=== PATIENT | male | born 1940 | race Caucasian/White ===

== ENCOUNTER 2021-01-23 07:30 | Observation (INO) ==
[~2021-01-23 07:30] MED LIST: Buffered Lidocaine 1% SYRIN 1 ml INTRADERM ONE; Lactated Ringers 1000 ml BAG 1,000 ML IV SCH
[2021-01-23] MEDS ORDERED: fentaNYL 100 mcg/2 ml 50 MCG/ML VIAL ONE ×2 (12:51→14:21)
[2021-01-23] MEDS ORDERED: Lidocaine 2% PF 5 ML VIAL ONE (12:51)
[2021-01-23] MEDS ORDERED: Phenylephrine IV 10 MG/ML 1 ml VIAL ONE ×2 (12:51→15:08)
[2021-01-23] MEDS ORDERED: ceFAZolin 2 GM in NS PREMIX 2 GM/100 ML BAG IVPB ONE (12:53)
[2021-01-23] MEDS ORDERED: Buffered Lidocaine 1% SYRIN 1 ml INTRADERM ONE (12:53)
[2021-01-23] MEDS ORDERED: Famotidine IV 10 MG/ML 2 ml VIAL (20 mg) ONE (12:53)
[2021-01-23] MEDS ORDERED: Dexamethasone IV 4 MG/ML VIAL 1 ml VIAL ONE ×2 (13:02→14:21)
[2021-01-23] MEDS ORDERED: Ondansetron 4 mg VIAL 2 MG/ML 2 ml VIAL ONE (13:02)
[2021-01-23] MEDS: Famotidine IV 10 MG/ML 2 ml VIAL (20 mg) IV ONE ×2 (13:15→13:23)
[2021-01-23] MEDS ORDERED: diPHENhydraMINE IV 50 MG/ML 1 ml VIAL (BENADRYL) IV PRN ×2 (13:18→16:31)
[2021-01-23] MEDS ORDERED: fentaNYL 100 mcg/2 ml 50 MCG/ML VIAL IV PRN (13:18)
[2021-01-23] MEDS ORDERED: HYDROmorphone 1 MG/1 ML SYRINGE IV PRN (13:18)
[2021-01-23] MEDS ORDERED: Ondansetron 4 mg VIAL 2 MG/ML 2 ml VIAL IV PRN ×2 (13:18→16:31)
[2021-01-23] MEDS ORDERED: Metoclopramide 5 MG/ML VIAL (10 mg) IV PRN (13:18)
[2021-01-23] MEDS ORDERED: Naloxone 0.4 mg VIAL 0.4 mg/ml 1 ml VIAL IV PRN (13:18)
[2021-01-23] MEDS ORDERED: HYDROcodone/ACETAMIN 5/325 mg TAB PO PRN (13:18)
[2021-01-23] MEDS ORDERED: Ropivacaine 5 MG/ML 20 ML VIAL 0.5% (100 MG) ONE ×2 (14:18→15:06)
[2021-01-23] MEDS ORDERED: Midazolam 2 mg/2 ml VIAL 1 mg/ml 2 ml VIAL (2 mg) ONE (14:21)
[2021-01-23] MEDS ORDERED: Propofol 10 MG/ML 20 ML BTL ONE (16:00)
[2021-01-23] MEDS ORDERED: Morphine 2 MG/ML SYRINGE IV PRN (16:31)
[2021-01-23] MEDS ORDERED: Magnesium Hydroxide LIQ 30 ML UDC PO PRN (16:31)
[2021-01-23] MEDS ORDERED: Lactulose 30 ml UDC PO PRN (16:31)
[2021-01-23] MEDS ORDERED: Ondansetron ODT 4 mg TAB 4 MG TAB PO PRN (16:31)
[2021-01-23] MEDS ORDERED: diPHENhydraMINE 25 mg TAB PO PRN (16:31)
[2021-01-23] MEDS ORDERED: Propofol 1,000 MG/100 ML BTL ONE (16:35)
[2021-01-23] MEDS: Lactated Ringers 1000 ml BAG 1,000 ML IV SCH (20:47)
[2021-01-23] MEDS: Magnesium Hydroxide LIQ 30 ML UDC PO SCH (20:54)
[2021-01-23] MEDS: ceFAZolin 1 GM ADVAN 1 GM in NS 0.9% 50 ML 50 ML IVPB SCH (23:32)
[2021-01-24 06:27] LABS: Hematocrit 37 % (42-52); Hemoglobin 12.3 g/dL (14.0-18.0); Mean Platelet Volume 8.8 fL (7.4-10.4); Platelet Count 259 10^3/uL (150-450)
[2021-01-24 06:57] LABS: Calcium 8.6 mg/dL (8.6-10.3); EGFR African American 91.2 (>60); EGFR Non-African American 75.4 (>60); Potassium 4.2 mmol/L (3.5-5.0)
[2021-01-24] MEDS: Lactated Ringers 1000 ml BAG 1,000 ML IV SCH (07:19)
[2021-01-24] MEDS: ceFAZolin 1 GM ADVAN 1 GM in NS 0.9% 50 ML 50 ML IVPB SCH ×2 (08:39→15:47)
[2021-01-24] MEDS: Magnesium Hydroxide LIQ 30 ML UDC PO SCH (08:40)
[2021-01-24] MEDS ORDERED: Vitamin THERAPEUTIC TAB PO SCH (09:00)
[2021-01-24 16:12] VITALS: BP 138/72
== END 2021-01-24 16:40 | disposition home or self-care (01) ==
LOC: AA 12:21 → INTOOBSV 12:21 → SSU 18:48
PROVIDERS: ADMIT Orthopaedic Surgery Adult Reconstructive Orthopaedic Surgery; ATTEND Orthopaedic Surgery Adult Reconstructive Orthopaedic Surgery

== ENCOUNTER 2021-07-23 18:23 | Inpatient (IN) ==
[2021-07-23] MEDS ORDERED: NS 0.9% 1000 ml BAG 1,000 ML IV ONE (18:27)
[2021-07-23 18:38] LABS: ABS Lymphocytes 0.6 10^3/ul (1.0-4.8); ABS Monocytes 0.6 10^3/ul (0-0.8); ABS Neutrophils 10.5 10^3/ul (1.5-7.7); Hematocrit 40 % (42-52); Hemoglobin 13.3 g/dL (14.0-18.0); Lymphocyte % 5.4 %; Mean Corpuscular HGB Conc 34 g/dL (31-36); Mean Corpuscular Hemoglobin 31 pg (27-31); Mean Corpuscular Volume 92 fL (80-94); Mean Platelet Volume 8.9 fL (7.4-10.4); Platelet Count 290 10^3/uL (150-450); Red Cell Distribution Width 15 % (10-15); White Blood Count 11.8 10^3/uL (3.5-10.8)
[2021-07-23] MEDS ORDERED: Prothrombin Complex Conc. DOSE = Units Factor IX (nine) IV SLOW PU ONE (18:42)
[2021-07-23 19:08] LABS: Activated Partial Thrombo Time 26.7 seconds (26.0-38.0); INR 1.08 (0.86-1.15)
[2021-07-23] MEDS ORDERED: Thrombin 5,000 UNITS 1 APPLIC KIT - topical use - TOPICAL ONE ×2 (19:20→21:47)
[2021-07-23] MEDS ORDERED: Lidocaine 1% w EPI 1:100,000 MDV 20 ML VIAL ONE (19:20)
[2021-07-23] MEDS ORDERED: Mannitol 25% (12.5 GM) 50 ML 12.5 GM/50 ML VIAL ONE (19:21)
[2021-07-23] MEDS ORDERED: Rocuronium 50 mg VIAL 10 mg/ml 5 ml VIAL (50 mg) ONE ×2 (19:25→21:57)
[2021-07-23] MEDS ORDERED: Lidocaine 2% PF 5 ML VIAL ONE ×2 (19:25→19:33)
[2021-07-23] MEDS ORDERED: fentaNYL 250 mcg/5 ml 50 MCG/ML 5 ml VIAL (250 MCG) ONE (19:25)
[2021-07-23] MEDS ORDERED: Propofol 10 MG/ML 20 ML BTL ONE ×4 (19:25→22:24)
[2021-07-23] MEDS ORDERED: Etomidate 20 mg/10 ml 2 MG/ML 10 ml VIAL ONE ×2 (19:25→19:29)
[2021-07-23 19:52] LABS: Albumin 4.6 g/dL (3.2-5.2); Calcium 9.3 mg/dL (8.6-10.3); Globulin 2.3 g/dL (2-4); HDL Cholesterol 57.3 mg/dL; Total Protein 6.9 g/dL (6.4-8.9)
[2021-07-23] MEDS ORDERED: ceFAZolin 2 GM in NS PREMIX 2 GM/100 ML BAG IVPB ONE (19:54)
[2021-07-23 20:08] LABS: High Sensitivity Troponin 1 Hr 244 pg/mL (<20)
[2021-07-23] MEDS ORDERED: Ondansetron 4 mg VIAL 2 MG/ML 2 ml VIAL IV PRN (20:18)
[2021-07-23 20:39] LABS: Potassium 3.5 mmol/L (3.5-5.0)
[2021-07-23] MEDS ORDERED: Gelfoam Sponge SIZE 100 SPONGE ONE (20:46)
[2021-07-23] MEDS ORDERED: levETIRAcetam IV 500 MG/5 ML VIAL ONE (21:06)
[2021-07-23 21:30] LABS: PCO2 Arterial 30 mmHg (35-45); PO2 Arterial 211 mmHg (80-100)
[2021-07-23] MEDS ORDERED: Phenylephrine IV 10 MG/ML 1 ml VIAL ONE (21:48)
[2021-07-23] MEDS ORDERED: Dexamethasone IV 4 MG/ML VIAL 1 ml VIAL ONE (22:16)
[2021-07-23] MEDS ORDERED: Ondansetron 4 mg VIAL 2 MG/ML 2 ml VIAL ONE (22:27)
[2021-07-23] MEDS ORDERED: hydrALAZINE 20 mg/ml 1 ML Vial IV ONE ×2 (22:37→23:03)
[2021-07-23] MEDS ORDERED: Lactated Ringers 1000 ml BAG 1,000 ML IV SCH (23:00)
[2021-07-23] MEDS: niCARdipine 0.1MG/ML IVPREMIX 20 MG/200 ML BAG IV SCH (23:40)
[2021-07-23] MEDS ORDERED: niCARdipine 0.1MG/ML IVPREMIX 20 MG/200 ML BAG IV SCH (23:45)
[2021-07-24] MEDS: Acetaminophen IV 1 GM/100ML 100 ML IV PRN ×3 (01:35→22:02)
[2021-07-24 04:57] LABS: ABS Lymphocytes 0.4 10^3/ul (1.0-4.8); ABS Monocytes 0.6 10^3/ul (0-0.8); ABS Neutrophils 14.2 10^3/ul (1.5-7.7); Hematocrit 35 % (42-52); Hemoglobin 11.8 g/dL (14.0-18.0); Lymphocyte % 2.5 %; Mean Corpuscular HGB Conc 33 g/dL (31-36); Mean Corpuscular Hemoglobin 32 pg (27-31); Mean Corpuscular Volume 95 fL (80-94); Mean Platelet Volume 9.5 fL (7.4-10.4); Platelet Count 252 10^3/uL (150-450); Red Blood Count 3.74 10^6 /uL (4.18-5.48); Red Cell Distribution Width 15 % (10-15); White Blood Count 15.2 10^3/uL (3.5-10.8)
[2021-07-24 05:01] LABS: INR 1.14 (0.86-1.15)
[2021-07-24 05:22] LABS: Albumin 3.9 g/dL (3.2-5.2); Albumin/Globulin Ratio 1.7 (1-3); Calcium 8.2 mg/dL (8.6-10.3); Globulin 2.3 g/dL (2-4); Magnesium 1.8 mg/dL (1.9-2.7); Phosphorus 3.3 mg/dL (2.5-5.0); Potassium 3.5 mmol/L (3.5-5.0); Total Protein 6.2 g/dL (6.4-8.9); eGFR CKD-EPI 75.2 (>60)
[2021-07-24] MEDS ORDERED: Magnesium Sulfate 2 gm BAG 2 GM/50 ML BAG IVPB ONE (05:27)
[2021-07-24] MEDS: niCARdipine 0.1MG/ML IVPREMIX 20 MG/200 ML BAG IV SCH ×4 (07:37→20:28)
[2021-07-24] MEDS ORDERED: Potassium Chlor 20 meq TAB.ER PO ONE (08:22)
[2021-07-24 08:50] LABS: PCO2 Arterial 28 mmHg (35-45); PO2 Arterial 102 mmHg (80-100)
[2021-07-24 09:14] LABS: Calcium 8.1 mg/dL (8.6-10.3); Potassium 3.6 mmol/L (3.5-5.0); eGFR CKD-EPI 79.9 (>60)
[2021-07-24] MEDS: levETIRAcetam 500 MG IVPREMIX 500 MG/100 ML BAG IV SCH ×2 (10:33→18:11)
[2021-07-24] MEDS ORDERED: Gadobenate (CONTRAST) 529 MG/ML 10 ML SDV IV ONE (13:30)
[2021-07-24] MEDS: KCL 20 MEQ/100 ML IVPREMIX 20 MEQ/100 ML BAG IV SCH ×2 (14:21→17:30)
[2021-07-25 04:35] LABS: Hematocrit 31 % (42-52); Hemoglobin 10.4 g/dL (14.0-18.0); Mean Corpuscular HGB Conc 33 g/dL (31-36); Mean Corpuscular Hemoglobin 31 pg (27-31); Mean Corpuscular Volume 94 fL (80-94); Mean Platelet Volume 9.6 fL (7.4-10.4); Platelet Count 241 10^3/uL (150-450); Red Blood Count 3.32 10^6 /uL (4.18-5.48); Red Cell Distribution Width 16 % (10-15); White Blood Count 13.5 10^3/uL (3.5-10.8)
[2021-07-25 04:56] LABS: Calcium 8.1 mg/dL (8.6-10.3); Magnesium 2.4 mg/dL (1.9-2.7); Potassium 3.9 mmol/L (3.5-5.0); eGFR CKD-EPI 89.5 (>60)
[2021-07-25] MEDS: levETIRAcetam 500 MG IVPREMIX 500 MG/100 ML BAG IV SCH ×2 (05:24→20:06)
[2021-07-25] MEDS: Acetaminophen IV 1 GM/100ML 100 ML IV PRN ×2 (06:05→21:08)
[2021-07-25 06:50] LABS: Urine Appearance Cloudy; Urine Bilirubin Negative (Negative); Urine Blood 3+ (Negative); Urine Color Yellow; Urine Glucose Negative (Negative); Urine Ketones 1+ (Negative); Urine Nitrite Negative (Negative); Urine Protein 1+(30 mg/dL) (Negative); Urine Specific Gravity 1.023 (1.002-1.030); Urine Urobilinogen Negative (Negative)
[2021-07-25 06:57] LABS: Urine Osmo 790 mOsm/kg (150-1150)
[2021-07-25 07:13] LABS: Urine Bacteria Absent (Absent); Urine Red Blood Cell 3+(>10/hpf) (Absent); Urine White Blood Cell 2+(11-20/hpf) (Absent); Urine Yeast Present (Absent)
[2021-07-25] MEDS ORDERED: Potassium Chloride LIQUID 20 MEQ/15 ML LIQUID PO ONE (07:40)
[2021-07-25] MEDS: hydrALAZINE 20 mg/ml 1 ML Vial IV IV SLOW PU PRN ×2 (17:04→21:12)
[2021-07-25] MEDS ORDERED: Furosemide 20 mg/2 ml IV VIAL IV SLOW PU ONE (21:05)
[2021-07-26] MEDS ORDERED: Diltiazem IV push/loading dose 5 MG/ML 5 ML vial (25 mg) IV SLOW PU ONE (03:36)
[2021-07-26 05:03] LABS: Hematocrit 31 % (42-52); Hemoglobin 10.3 g/dL (14.0-18.0); Mean Corpuscular HGB Conc 33 g/dL (31-36); Mean Corpuscular Hemoglobin 31 pg (27-31); Mean Corpuscular Volume 94 fL (80-94); Mean Platelet Volume 9.3 fL (7.4-10.4); Platelet Count 234 10^3/uL (150-450); Red Blood Count 3.33 10^6 /uL (4.18-5.48); Red Cell Distribution Width 15 % (10-15); White Blood Count 11.4 10^3/uL (3.5-10.8)
[2021-07-26] MEDS: levETIRAcetam 500 MG IVPREMIX 500 MG/100 ML BAG IV SCH ×2 (05:17→18:56)
[2021-07-26] MEDS ORDERED: niCARdipine 0.1MG/ML IVPREMIX 20 MG/200 ML BAG IV ONE (05:17)
[2021-07-26 05:18] LABS: Calcium 8.3 mg/dL (8.6-10.3); Magnesium 2.2 mg/dL (1.9-2.7); Potassium 3.7 mmol/L (3.5-5.0); eGFR CKD-EPI 90.2 (>60)
[2021-07-26] MEDS: niCARdipine 0.1MG/ML IVPREMIX 20 MG/200 ML BAG IV SCH ×2 (05:21→07:51)
[2021-07-26] MEDS ORDERED: Potassium Chlor 20 meq TAB.ER PO ONE (07:23)
[2021-07-26] MEDS ORDERED: Labetalol IV 5 MG/ML 20 ml VIAL IV PUSH PRN (08:26)
[2021-07-27] MEDS: levETIRAcetam 500 MG IVPREMIX 500 MG/100 ML BAG IV SCH (06:07)
[2021-07-27 06:28] LABS: Hematocrit 31 % (42-52); Hemoglobin 10.6 g/dL (14.0-18.0); Mean Corpuscular HGB Conc 34 g/dL (31-36); Mean Corpuscular Hemoglobin 32 pg (27-31); Mean Corpuscular Volume 95 fL (80-94); Red Blood Count 3.32 10^6 /uL (4.18-5.48); Red Cell Distribution Width 15 % (10-15); White Blood Count 9.7 10^3/uL (3.5-10.8)
[2021-07-27 06:48] LABS: Calcium 8.3 mg/dL (8.6-10.3); Potassium 3.9 mmol/L (3.5-5.0); eGFR CKD-EPI 94.4 (>60)
[2021-07-27 07:53] LABS: Mean Platelet Volume 10.1 fL (7.4-10.4); Platelet Count 245 10^3/uL (150-450)
[2021-07-28 05:24] LABS: ABS Eosinophils 0.1 10^3/ul (0-0.6); ABS Lymphocytes 1.3 10^3/ul (1.0-4.8); ABS Monocytes 0.6 10^3/ul (0-0.8); ABS Neutrophils 5.4 10^3/ul (1.5-7.7); Eosinophil % 1.8 %; Hematocrit 31 % (42-52); Hemoglobin 10.5 g/dL (14.0-18.0); Mean Corpuscular HGB Conc 33 g/dL (31-36); Mean Corpuscular Hemoglobin 31 pg (27-31); Mean Corpuscular Volume 94 fL (80-94); Mean Platelet Volume 9.7 fL (7.4-10.4); Platelet Count 251 10^3/uL (150-450); Red Blood Count 3.34 10^6 /uL (4.18-5.48); Red Cell Distribution Width 15 % (10-15); White Blood Count 7.5 10^3/uL (3.5-10.8)
[2021-07-28 06:05] LABS: Calcium 7.9 mg/dL (8.6-10.3); Potassium 3.7 mmol/L (3.5-5.0)
[2021-07-28 06:26] LABS: eGFR CKD-EPI 96.2 (>60)
[2021-07-28] MEDS: Enoxaparin 40 MG/0.4 ML SYR SUBCUT SCH (11:30)
[2021-07-29] MEDS: Enoxaparin 40 MG/0.4 ML SYR SUBCUT SCH (11:17)
[2021-07-29 12:17] LABS: Urine Appearance Clear; Urine Bilirubin Negative (Negative); Urine Blood 1+ (Negative); Urine Color Yellow; Urine Glucose Negative (Negative); Urine Ketones Negative (Negative); Urine Nitrite Negative (Negative); Urine Protein Negative (Negative); Urine Specific Gravity 1.021 (1.002-1.030); Urine Urobilinogen Positive (Negative)
[2021-07-29 12:20] LABS: Urine Bacteria Absent (Absent); Urine Red Blood Cell 2+(6-10/hpf) (Absent); Urine White Blood Cell Trace(0-5/hpf) (Absent)
[2021-07-29 15:17] VITALS: BP 141/66
== END 2021-07-29 15:19 | DRG 23 ==
LOC: ED 18:23 → ICU 20:17 → SUATTDRO 20:18 → ICU 20:18 → SSU 07-25 17:21 → ICU 07-26 04:42 → MEDTELE 07-26 18:02
PROVIDERS: ADMIT Internal Medicine; ATTEND Student in an Organized Health Care Education/Training Program

== ENCOUNTER 2021-07-29 13:23 | Inpatient (IN) ==
[2021-07-29] MEDS ORDERED: Ondansetron ODT 4 mg TAB 4 MG TAB PO PRN (15:49)
[2021-07-29] MEDS: Senna TAB 8.6 mg TAB PO PRN (21:11)
[2021-07-30 05:53] LABS: ABS Basophils 0.1 10^3/ul (0-0.2); ABS Eosinophils 0.1 10^3/ul (0-0.6); ABS Lymphocytes 1.7 10^3/ul (1.0-4.8); ABS Monocytes 0.8 10^3/ul (0-0.8); Eosinophil % 1.2 %; Hematocrit 32 % (42-52); Hemoglobin 10.8 g/dL (14.0-18.0); Lymphocyte % 19.6 %; Mean Corpuscular HGB Conc 34 g/dL (31-36); Mean Corpuscular Hemoglobin 32 pg (27-31); Mean Corpuscular Volume 93 fL (80-94); Mean Platelet Volume 9.8 fL (7.4-10.4); Platelet Count 266 10^3/uL (150-450); Red Blood Count 3.43 10^6 /uL (4.18-5.48); Red Cell Distribution Width 15 % (10-15); White Blood Count 8.6 10^3/uL (3.5-10.8)
[2021-07-30 06:52] LABS: Albumin 3.1 g/dL (3.2-5.2); Calcium 8.2 mg/dL (8.6-10.3); Potassium 3.4 mmol/L (3.5-5.0); Total Bilirubin 0.7 mg/dL (0.2-1.0)
[2021-07-30 06:58] LABS: Albumin/Globulin Ratio 1.2 (1-3); Globulin 2.6 g/dL (2-4); Total Protein 5.7 g/dL (6.4-8.9)
[2021-07-30] MEDS: Magnesium Hydroxide LIQ 30 ML UDC PO PRN (10:16)
[2021-07-30] MEDS ORDERED: Pneumococcal Vac 23-Polyvalent IM ONE (11:00)
[2021-07-30] MEDS: Enoxaparin 40 MG/0.4 ML SYR SUBCUT SCH (13:19)
[2021-07-30] MEDS: Senna TAB 8.6 mg TAB PO PRN (20:46)
[2021-07-30] MEDS ORDERED: Potassium Chlor 20 meq TAB.ER PO SCH (21:00)
[2021-07-30] MEDS: Potassium Chloride LIQUID 20 MEQ/15 ML LIQUID PO SCH (21:22)
[2021-07-31] MEDS: Potassium Chloride LIQUID 20 MEQ/15 ML LIQUID PO SCH ×2 (09:42→19:30)
[2021-07-31] MEDS: Enoxaparin 40 MG/0.4 ML SYR SUBCUT SCH (13:51)
[2021-07-31 16:43] LABS: Urine Appearance Cloudy; Urine Bilirubin Negative (Negative); Urine Blood 3+ (Negative); Urine Color Amber; Urine Glucose Negative (Negative); Urine Ketones Negative (Negative); Urine Nitrite Negative (Negative); Urine Protein 2+(100 mg/dL) (Negative); Urine Specific Gravity 1.025 (1.002-1.030); Urine Urobilinogen Positive (Negative)
[2021-07-31 16:50] LABS: Urine Bacteria Absent (Absent); Urine Red Blood Cell 3+(>10/hpf) (Absent); Urine Squamous Epithelial Cell Present (Absent); Urine White Blood Cell 2+(11-20/hpf) (Absent)
[2021-08-01] MEDS: Potassium Chloride LIQUID 20 MEQ/15 ML LIQUID PO SCH ×2 (08:13→21:37)
[2021-08-01] MEDS: Enoxaparin 40 MG/0.4 ML SYR SUBCUT SCH (13:11)
[2021-08-02 06:09] LABS: Calcium 8.2 mg/dL (8.6-10.3); eGFR CKD-EPI 93.6 (>60)
[2021-08-02] MEDS: Enoxaparin 40 MG/0.4 ML SYR SUBCUT SCH (12:34)
[2021-08-03] MEDS: Magnesium Hydroxide LIQ 30 ML UDC PO PRN (10:00)
[2021-08-03] MEDS: Enoxaparin 40 MG/0.4 ML SYR SUBCUT SCH (13:59)
[2021-08-04] MEDS: Enoxaparin 40 MG/0.4 ML SYR SUBCUT SCH (12:07)
[2021-08-05] MEDS: Polyethylene Glycol 3350 17 GM PACKET PO PRN (07:57)
[2021-08-05 11:08] LABS: Urine Appearance Turbid; Urine Bilirubin Negative (Negative); Urine Blood 3+ (Negative); Urine Color Yellow; Urine Glucose Negative (Negative); Urine Ketones Negative (Negative); Urine Nitrite Positive (Negative); Urine Protein 1+(30 mg/dL) (Negative); Urine Specific Gravity 1.012 (1.002-1.030); Urine Urobilinogen Negative (Negative)
[2021-08-05 11:17] LABS: Urine Amorphous Crystals Present (Absent); Urine Bacteria 1+ (Absent); Urine Red Blood Cell 1+(3-5/hpf) (Absent); Urine White Blood Cell 3+(>20/hpf) (Absent)
[2021-08-05] MEDS: Magnesium Hydroxide LIQ 30 ML UDC PO PRN (11:51)
[2021-08-05] MEDS: Enoxaparin 40 MG/0.4 ML SYR SUBCUT SCH (11:51)
[2021-08-05] MEDS: Lidocaine PATCH 5% PATCH TRANSDERM PRN (20:02)
[2021-08-05] MEDS: Senna TAB 8.6 mg TAB PO PRN (20:12)
[2021-08-06 07:21] LABS: ABS Basophils 0.1 10^3/ul (0-0.2); ABS Lymphocytes 0.9 10^3/ul (1.0-4.8); ABS Monocytes 1.1 10^3/ul (0-0.8); ABS Neutrophils 16.1 10^3/ul (1.5-7.7); Hematocrit 30 % (42-52); Hemoglobin 10.1 g/dL (14.0-18.0); Lymphocyte % 5.1 %; Mean Corpuscular HGB Conc 34 g/dL (31-36); Mean Corpuscular Hemoglobin 31 pg (27-31); Mean Corpuscular Volume 93 fL (80-94); Mean Platelet Volume 9.8 fL (7.4-10.4); Platelet Count 379 10^3/uL (150-450); Red Blood Count 3.21 10^6 /uL (4.18-5.48); Red Cell Distribution Width 14 % (10-15); White Blood Count 18.1 10^3/uL (3.5-10.8)
[2021-08-06 07:51] LABS: Albumin 3.3 g/dL (3.2-5.2); Albumin/Globulin Ratio 1.5 (1-3); Calcium 8.4 mg/dL (8.6-10.3); Globulin 2.2 g/dL (2-4); Potassium 4.2 mmol/L (3.5-5.0); Total Bilirubin 0.6 mg/dL (0.2-1.0); Total Protein 5.5 g/dL (6.4-8.9); eGFR CKD-EPI 91.2 (>60)
[2021-08-06] MEDS: Polyethylene Glycol 3350 17 GM PACKET PO PRN (08:52)
[2021-08-06] MEDS: Magnesium Hydroxide LIQ 30 ML UDC PO PRN (08:52)
[2021-08-06] MEDS: Enoxaparin 40 MG/0.4 ML SYR SUBCUT SCH (12:14)
[2021-08-06] MEDS: Amoxicillin/Clavul 875/125 TAB (Augmentin 875 tab) PO SCH (20:56)
[2021-08-07 08:15] LABS: ABS Monocytes 0.8 10^3/ul (0-0.8); ABS Neutrophils 9.6 10^3/ul (1.5-7.7); Eosinophil % 0.4 %; Hematocrit 29 % (42-52); Hemoglobin 9.6 g/dL (14.0-18.0); Lymphocyte % 8.9 %; Mean Corpuscular HGB Conc 33 g/dL (31-36); Mean Corpuscular Hemoglobin 31 pg (27-31); Mean Corpuscular Volume 93 fL (80-94); Mean Platelet Volume 9.7 fL (7.4-10.4); Platelet Count 402 10^3/uL (150-450); Red Blood Count 3.11 10^6 /uL (4.18-5.48); Red Cell Distribution Width 14 % (10-15); White Blood Count 11.5 10^3/uL (3.5-10.8)
[2021-08-07] MEDS: Amoxicillin/Clavul 875/125 TAB (Augmentin 875 tab) PO SCH ×2 (09:55→20:54)
[2021-08-07] MEDS: Enoxaparin 40 MG/0.4 ML SYR SUBCUT SCH (12:30)
[2021-08-07] MEDS ORDERED: Sodium Phosphate ADULT ENEMA 133 ML BTL PR PRN (17:02)
[2021-08-07] MEDS: Lactulose 30 ml UDC PO PRN (18:01)
[2021-08-08] MEDS: Amoxicillin/Clavul 875/125 TAB (Augmentin 875 tab) PO SCH ×2 (09:14→21:13)
[2021-08-08] MEDS: Polyethylene Glycol 3350 17 GM PACKET PO PRN (09:47)
[2021-08-08] MEDS: Enoxaparin 40 MG/0.4 ML SYR SUBCUT SCH (14:22)
[2021-08-08] MEDS: Lactulose 30 ml UDC PO PRN (16:33)
[2021-08-08] MEDS: Magnesium Hydroxide LIQ 30 ML UDC PO PRN (16:35)
[2021-08-08] MEDS: Senna TAB 8.6 mg TAB PO PRN (21:13)
[2021-08-09] MEDS: Amoxicillin/Clavul 875/125 TAB (Augmentin 875 tab) PO SCH ×2 (09:21→20:47)
[2021-08-09] MEDS: Polyethylene Glycol 3350 17 GM PACKET PO PRN (09:21)
[2021-08-09] MEDS: Enoxaparin 40 MG/0.4 ML SYR SUBCUT SCH (13:02)
[2021-08-09] MEDS: Lidocaine PATCH 5% PATCH TRANSDERM PRN (17:32)
[2021-08-09] MEDS: Senna TAB 8.6 mg TAB PO PRN (20:47)
[2021-08-10] MEDS: Amoxicillin/Clavul 875/125 TAB (Augmentin 875 tab) PO SCH ×2 (09:21→22:41)
[2021-08-10] MEDS: Enoxaparin 40 MG/0.4 ML SYR SUBCUT SCH (13:40)
[2021-08-10] MEDS: Lidocaine PATCH 5% PATCH TRANSDERM PRN (22:37)
[2021-08-10] MEDS: Senna TAB 8.6 mg TAB PO PRN (22:42)
[2021-08-11] MEDS: Amoxicillin/Clavul 875/125 TAB (Augmentin 875 tab) PO SCH ×2 (09:03→20:43)
[2021-08-11] MEDS: Enoxaparin 40 MG/0.4 ML SYR SUBCUT SCH (09:03)
[2021-08-11] MEDS: Bacitracin OINTMENT TUBE TOPICAL SCH (20:44)
[2021-08-12] MEDS: Enoxaparin 40 MG/0.4 ML SYR SUBCUT SCH (09:37)
[2021-08-12] MEDS: Amoxicillin/Clavul 875/125 TAB (Augmentin 875 tab) PO SCH ×2 (09:38→20:42)
[2021-08-12] MEDS: Bacitracin OINTMENT TUBE TOPICAL SCH ×2 (09:38→20:42)
[2021-08-13 06:10] LABS: ABS Basophils 0.1 10^3/ul (0-0.2); ABS Eosinophils 0.1 10^3/ul (0-0.6); ABS Lymphocytes 1.8 10^3/ul (1.0-4.8); ABS Monocytes 0.7 10^3/ul (0-0.8); ABS Neutrophils 4.4 10^3/ul (1.5-7.7); Eosinophil % 1.3 %; Hematocrit 30 % (42-52); Hemoglobin 10.3 g/dL (14.0-18.0); Lymphocyte % 25.8 %; Mean Corpuscular HGB Conc 34 g/dL (31-36); Mean Corpuscular Hemoglobin 32 pg (27-31); Mean Corpuscular Volume 93 fL (80-94); Mean Platelet Volume 9.2 fL (7.4-10.4); Platelet Count 482 10^3/uL (150-450); Red Blood Count 3.26 10^6 /uL (4.18-5.48); Red Cell Distribution Width 14 % (10-15); White Blood Count 7.1 10^3/uL (3.5-10.8)
[2021-08-13 06:49] LABS: Albumin 3.4 g/dL (3.2-5.2); Albumin/Globulin Ratio 1.4 (1-3); Calcium 8.9 mg/dL (8.6-10.3); Globulin 2.4 g/dL (2-4); Potassium 4.4 mmol/L (3.5-5.0); Total Bilirubin 0.4 mg/dL (0.2-1.0); Total Protein 5.8 g/dL (6.4-8.9); eGFR CKD-EPI 89.8 (>60)
[2021-08-13] MEDS: Enoxaparin 40 MG/0.4 ML SYR SUBCUT SCH (08:26)
[2021-08-13] MEDS: Amoxicillin/Clavul 875/125 TAB (Augmentin 875 tab) PO SCH ×2 (08:26→21:16)
[2021-08-13] MEDS: Bacitracin OINTMENT TUBE TOPICAL SCH ×2 (08:28→21:19)
[2021-08-13] MEDS: Lidocaine PATCH 5% PATCH TRANSDERM PRN (19:29)
[2021-08-14] MEDS: Bacitracin OINTMENT TUBE TOPICAL SCH ×2 (08:09→21:46)
[2021-08-14] MEDS: Enoxaparin 40 MG/0.4 ML SYR SUBCUT SCH (08:10)
[2021-08-14] MEDS: Senna TAB 8.6 mg TAB PO PRN (21:45)
[2021-08-15] MEDS: Enoxaparin 40 MG/0.4 ML SYR SUBCUT SCH (09:24)
[2021-08-15] MEDS: Bacitracin OINTMENT TUBE TOPICAL SCH ×2 (09:25→21:09)
[2021-08-15] MEDS: Senna TAB 8.6 mg TAB PO PRN (21:08)
[2021-08-16] MEDS: Enoxaparin 40 MG/0.4 ML SYR SUBCUT SCH (08:55)
[2021-08-16] MEDS: Bacitracin OINTMENT TUBE TOPICAL SCH ×2 (08:59→21:24)
[2021-08-16] MEDS: Lidocaine PATCH 5% PATCH TRANSDERM PRN (21:23)
[2021-08-17] MEDS: Enoxaparin 40 MG/0.4 ML SYR SUBCUT SCH (10:32)
[2021-08-17] MEDS: Bacitracin OINTMENT TUBE TOPICAL SCH ×2 (10:40→20:50)
[2021-08-17 15:58] LABS: Urine Appearance Turbid; Urine Bilirubin Negative (Negative); Urine Blood Negative (Negative); Urine Color Yellow; Urine Glucose Negative (Negative); Urine Ketones Negative (Negative); Urine Nitrite Positive (Negative); Urine Protein 3+(>=500 mg/dL) (Negative); Urine Specific Gravity 1.022 (1.002-1.030); Urine Urobilinogen Negative (Negative)
[2021-08-17 16:23] LABS: Urine Bacteria Absent (Absent); Urine Red Blood Cell 2+(6-10/hpf) (Absent); Urine White Blood Cell Trace(0-5/hpf) (Absent)
[2021-08-18] MEDS: Enoxaparin 40 MG/0.4 ML SYR SUBCUT SCH (08:50)
[2021-08-18] MEDS: Bacitracin OINTMENT TUBE TOPICAL SCH ×2 (08:51→20:45)
[2021-08-18] MEDS: Amoxicillin/Clavul 875/125 TAB (Augmentin 875 tab) PO SCH (17:42)
[2021-08-19] MEDS: Bacitracin OINTMENT TUBE TOPICAL SCH ×2 (08:24→19:45)
[2021-08-19] MEDS: Enoxaparin 40 MG/0.4 ML SYR SUBCUT SCH (09:24)
[2021-08-19] MEDS: Amoxicillin/Clavul 875/125 TAB (Augmentin 875 tab) PO SCH ×2 (09:25→19:46)
[2021-08-20 06:22] LABS: ABS Eosinophils 0.1 10^3/ul (0-0.6); ABS Lymphocytes 1.6 10^3/ul (1.0-4.8); ABS Monocytes 0.5 10^3/ul (0-0.8); ABS Neutrophils 3.3 10^3/ul (1.5-7.7); Eosinophil % 2.3 %; Hematocrit 29 % (42-52); Hemoglobin 9.7 g/dL (14.0-18.0); Mean Corpuscular HGB Conc 34 g/dL (31-36); Mean Corpuscular Hemoglobin 32 pg (27-31); Mean Corpuscular Volume 93 fL (80-94); Mean Platelet Volume 9.5 fL (7.4-10.4); Platelet Count 288 10^3/uL (150-450); Red Blood Count 3.05 10^6 /uL (4.18-5.48); Red Cell Distribution Width 14 % (10-15); White Blood Count 5.6 10^3/uL (3.5-10.8)
[2021-08-20 06:51] LABS: Albumin 3.4 g/dL (3.2-5.2); Albumin/Globulin Ratio 1.5 (1-3); Calcium 8.8 mg/dL (8.6-10.3); Globulin 2.3 g/dL (2-4); Total Bilirubin 0.4 mg/dL (0.2-1.0); Total Protein 5.7 g/dL (6.4-8.9); eGFR CKD-EPI 89.8 (>60)
[2021-08-20] MEDS: Enoxaparin 40 MG/0.4 ML SYR SUBCUT SCH (09:23)
[2021-08-20] MEDS: Amoxicillin/Clavul 875/125 TAB (Augmentin 875 tab) PO SCH ×2 (09:23→21:00)
[2021-08-20] MEDS: Bacitracin OINTMENT TUBE TOPICAL SCH ×2 (09:32→21:01)
[2021-08-21] MEDS: Amoxicillin/Clavul 875/125 TAB (Augmentin 875 tab) PO SCH ×2 (09:15→20:53)
[2021-08-21] MEDS: Enoxaparin 40 MG/0.4 ML SYR SUBCUT SCH (09:19)
[2021-08-21] MEDS: Bacitracin OINTMENT TUBE TOPICAL SCH ×2 (09:23→20:56)
[2021-08-22] MEDS: Amoxicillin/Clavul 875/125 TAB (Augmentin 875 tab) PO SCH ×2 (10:36→21:04)
[2021-08-22] MEDS: Enoxaparin 40 MG/0.4 ML SYR SUBCUT SCH (10:41)
[2021-08-22] MEDS: Bacitracin OINTMENT TUBE TOPICAL SCH ×2 (10:42→21:08)
[2021-08-23] MEDS: Enoxaparin 40 MG/0.4 ML SYR SUBCUT SCH (09:51)
[2021-08-23] MEDS: Amoxicillin/Clavul 875/125 TAB (Augmentin 875 tab) PO SCH ×2 (09:52→21:18)
[2021-08-23] MEDS: Bacitracin OINTMENT TUBE TOPICAL SCH ×2 (09:52→21:20)
[2021-08-24] MEDS: Amoxicillin/Clavul 875/125 TAB (Augmentin 875 tab) PO SCH ×2 (09:58→20:31)
[2021-08-24] MEDS: Enoxaparin 40 MG/0.4 ML SYR SUBCUT SCH (09:58)
[2021-08-24] MEDS: Bacitracin OINTMENT TUBE TOPICAL SCH ×2 (10:00→20:45)
[2021-08-25] MEDS: Amoxicillin/Clavul 875/125 TAB (Augmentin 875 tab) PO SCH (08:45)
[2021-08-25] MEDS: Enoxaparin 40 MG/0.4 ML SYR SUBCUT SCH (08:48)
[2021-08-25] MEDS: Bacitracin OINTMENT TUBE TOPICAL SCH ×2 (09:37→20:28)
[2021-08-26] MEDS: Enoxaparin 40 MG/0.4 ML SYR SUBCUT SCH (08:19)
[2021-08-26] MEDS: Bacitracin OINTMENT TUBE TOPICAL SCH ×2 (08:23→20:57)
[2021-08-26] MEDS: Polyethylene Glycol 3350 17 GM PACKET PO PRN (16:52)
[2021-08-27] MEDS: Enoxaparin 40 MG/0.4 ML SYR SUBCUT SCH (09:04)
[2021-08-27] MEDS: Bacitracin OINTMENT TUBE TOPICAL SCH ×2 (09:06→20:55)
[2021-08-28 04:45] VITALS: BP 140/70
[2021-08-28] MEDS: Enoxaparin 40 MG/0.4 ML SYR SUBCUT SCH (08:36)
[2021-08-28] MEDS: Bacitracin OINTMENT TUBE TOPICAL SCH (08:37)
== END 2021-08-28 14:12 | disposition home or self-care (01) | DRG 57 ==
LOC: PMRU 15:19
PROVIDERS: ADMIT Physical Medicine & Rehabilitation; ATTEND Physical Medicine & Rehabilitation

== ENCOUNTER 2022-01-21 12:35 | Observation (INO) ==
[2022-01-21] MEDS ORDERED: Lactated Ringers 1000 ml BAG 1,000 ML IV ONE ×2 (12:45→15:11)
[2022-01-21] MEDS ORDERED: fentaNYL 100 mcg/2 ml 50 MCG/ML VIAL IV SLOW PU ONE ×3 (12:51→13:22)
[2022-01-21] MEDS ORDERED: Ondansetron 4 mg VIAL 2 MG/ML 2 ml VIAL IV ONE (12:51)
[2022-01-21] MEDS ORDERED: fentaNYL 100 mcg/2 ml 50 MCG/ML VIAL ONE ×2 (13:01→13:23)
[2022-01-21 13:07] LABS: ABS Eosinophils 0.1 10^3/ul (0-0.6); ABS Lymphocytes 2.8 10^3/ul (1.0-4.8); ABS Monocytes 0.6 10^3/ul (0-0.8); ABS Neutrophils 3.5 10^3/ul (1.5-7.7); Eosinophil % 1.7 %; Hematocrit 31 % (42-52); Hemoglobin 10.1 g/dL (14.0-18.0); Lymphocyte % 39.2 %; Mean Corpuscular HGB Conc 33 g/dL (31-36); Mean Corpuscular Hemoglobin 32 pg (27-31); Mean Corpuscular Volume 96 fL (80-94); Mean Platelet Volume 9.2 fL (7.4-10.4); Nucleated Red Blood Cells % 0.2; Platelet Count 275 10^3/uL (150-450); Red Blood Count 3.21 10^6 /uL (4.18-5.48); Red Cell Distribution Width 14 % (10-15); White Blood Count 7.1 10^3/uL (3.5-10.8)
[2022-01-21 13:18] LABS: INR 0.99 (0.89-1.11)
[2022-01-21] MEDS ORDERED: Ondansetron 4 mg VIAL 2 MG/ML 2 ml VIAL IV PRN (14:16)
[2022-01-21] MEDS ORDERED: HYDROmorphone 0.5 MG/0.5 ML SYRINGE IV SLOW PU PRN (14:25)
[2022-01-21 14:36] LABS: Albumin 4.4 g/dL (3.2-5.2); Albumin/Globulin Ratio 2.2 (1-3); Total Bilirubin 0.6 mg/dL (0.2-1.0); Total Protein 6.4 g/dL (6.4-8.9); eGFR CKD-EPI 68.2 (>60)
[2022-01-21] MEDS ORDERED: Lactated Ringers 1000 ml BAG 1,000 ML IV SCH (15:00)
[2022-01-21] MEDS ORDERED: Rocuronium 50 mg VIAL 10 mg/ml 5 ml VIAL (50 mg) ONE (17:35)
[2022-01-21] MEDS ORDERED: Propofol 10 MG/ML 20 ML BTL ONE (17:35)
[2022-01-21] MEDS ORDERED: Lidocaine 2% PF 5 ML VIAL ONE (17:37)
[2022-01-21] MEDS ORDERED: fentaNYL 250 mcg/5 ml 50 MCG/ML 5 ml VIAL (250 MCG) ONE (17:37)
[2022-01-21] MEDS ORDERED: Bupivacaine 0.25% EPI 200,000 30 ML SDV ONE (17:40)
[2022-01-21] MEDS ORDERED: ceFAZolin 2 GM in NS PREMIX 2 GM/100 ML BAG IVPB ONE (18:21)
[2022-01-21] MEDS ORDERED: Esmolol 10 MG/ML 10 ML (100 mg) ONE (18:28)
[2022-01-21] MEDS ORDERED: Ondansetron 4 mg VIAL 2 MG/ML 2 ml VIAL ONE (20:01)
[2022-01-21] MEDS ORDERED: Dexamethasone IV 4 MG/ML VIAL 1 ml VIAL ONE (20:01)
[2022-01-21] MEDS ORDERED: Acetaminophen IV 1 GM/100ML 1,000 MG/100 ML BAG IV ONE (20:01)
[2022-01-22 05:24] LABS: ABS Lymphocytes 0.8 10^3/ul (1.0-4.8); ABS Monocytes 0.8 10^3/ul (0-0.8); ABS Neutrophils 8.4 10^3/ul (1.5-7.7); Hematocrit 29 % (42-52); Hemoglobin 9.9 g/dL (14.0-18.0); Lymphocyte % 8.4 %; Mean Corpuscular HGB Conc 34 g/dL (31-36); Mean Corpuscular Hemoglobin 33 pg (27-31); Mean Corpuscular Volume 96 fL (80-94); Mean Platelet Volume 9.6 fL (7.4-10.4); Platelet Count 248 10^3/uL (150-450); Red Blood Count 3.03 10^6 /uL (4.18-5.48); Red Cell Distribution Width 14 % (10-15)
[2022-01-22 05:49] LABS: Calcium 9.4 mg/dL (8.6-10.3); Potassium 4.8 mmol/L (3.5-5.0); eGFR CKD-EPI 82.5 (>60)
[2022-01-22] MEDS ORDERED: Lisinopril/HCTZ 20/25 TAB (NF) PO SCH (09:00)
[2022-01-22 16:00] VITALS: BP 103/54
== END 2022-01-22 17:20 | disposition home or self-care (01) ==
LOC: ED 12:35 → EDHOLD 15:30 → INTOOBSV 15:30 → EDHOLD 17:02 → SSU 23:15
PROVIDERS: ADMIT Surgery; ATTEND Surgery